=== PATIENT | female | born 1980 | race Caucasian/White ===

== ENCOUNTER → 2020-11-19 10:41 | Outpatient (BNVA) | payer MEDICAID, SELFPAY | PROVIDERS: Visit Provider Counselor Professional | DX: F41.1 Generalized anxiety disorder (principal) | CPT/HCPCS: 90834 ==

== ENCOUNTER → 2020-11-21 13:36 | Outpatient (BNVA) | payer MEDICAID, SELFPAY | PROVIDERS: Visit Provider Psychiatry & Neurology Psychiatry | DX: F02.81 Dementia in other diseases classified elsewhere, unspecified severity, with behavioral disturbance (principal); F41.1 Generalized anxiety disorder; F33.2 Major depressive disorder, recurrent severe without psychotic features | CPT/HCPCS: 99204 ==

== ENCOUNTER → 2020-12-24 10:58 | Outpatient (BNVA) | payer MEDICAID, SELFPAY | PROVIDERS: Visit Provider Counselor Professional | DX: F41.1 Generalized anxiety disorder (principal) | CPT/HCPCS: 90834 ==

== ENCOUNTER → 2021-01-03 13:14 | Outpatient (BNVA) | payer MEDICAID, SELFPAY | PROVIDERS: Visit Provider Psychiatry & Neurology Psychiatry | DX: F33.2 Major depressive disorder, recurrent severe without psychotic features (principal); F41.1 Generalized anxiety disorder; F02.81 Dementia in other diseases classified elsewhere, unspecified severity, with behavioral disturbance | CPT/HCPCS: 99214 ==

== ENCOUNTER 2021-09-28 14:16 | Inpatient (IN) | payer MEDICAID, SELFPAY ==
[2021-04-30 09:06] VITALS: BP 124/88; BMI 21.2
[2021-09-28 14:20] VITALS: BP 136/90; PULSE 86; RESP 18; TEMP 36.6; O2SAT 93; BMI 22.2
--- NOTE | 2021-09-28 14:44 | ED_ITS ---
HPI - General Adult General: Chief complaint: Psychiatric Symptoms Stated complaint: Suicidal Ideations Time Seen by Provider: 09/28/21 14:24 History of Present Illness: HPI: [40]yo patient w/ hx of schizoaffective disorder presenting after attempting suicide and hearing voices. Patient tells me that she is feeling depressed and her medicine is not working. Patient stopped taking her medicine 1 week ago. Patient tells me that 4 days ago, she was on a 26 floor balcony attempting to jump off the building. ported the patient was also hearing voices and has significant paranoia that her family is in danger. On arrival, the patient is AAOx3 and cooperative with my evalu ation. No focal complaints of chest pain, shortness of breath, palpitations, N/V, focal GI/ complaints. Onset: acute Duration: ongoing Location: home Severity: severe Associated symptoms: Deny chest pain, dyspnea, nausea, rash, palpitations or vomiting Review of Systems Const: Denies: fever(s) or chills Eyes: Denies: change in vision ENMT: Denies: mouth pain Card: Denies: chest pain or palpitations Resp: Denies: dyspnea or non-productive cough GI: Denies: abdominal pain, nausea, vomiting or diarrhea : Denies: dysuria Musc: Denies: extremity pain Skin/Breast: Denies: rash or new lesions Neuro: Denies: weakness in extremities Psych: Reports: depression, paranoia and auditory hallucinations Tay/Lymph: Denies: easy bruising PFSH ED PFSH: Medical History (Updated 09/28/21 @ 14:46 by Lesly Umaña MD) Schizoaffective disorder Family History (Updated 12/27/20 @ 09:44 by Myesha Bautista RN) Other Cancer Hypertension Social History (Updated 12/27/20 @ 11:25 by Myesha Bautista RN) Smoking and tobacco status: current some day smoker cigarettes Years cigarettes smoked: 27 [ Other cigarette details: 3-4 cigarettes a day] Second hand smoke exposure: Yes Alcohol intake: never Adopted: No Caregiver/support person: No Lives independently: No Household members: children Housing: Manufactured/Mobile home Marital status: Marital status details: 3-4 years ago Number of children: 3 Number of grandchildren: 0 Highest education level completed: Some College, No Degree service: No Current occupational status: unemployed Current occupational exposures/hazards: No Pets and animals: Yes (3 dogs) Pets & animals: dog(s) and farm animals Farm Animals: cattle Pets & animal details: to be butchered History of recent travel: Yes ([place]) Details: for a wedding Out of state: Yes Leisure activites: music and other Leisure activities details: likes to write Sexually active: No Current gender identity: Female Laura/Jehovah'S Witness: None Special laura needs: No Agree to transfusion: Yes Financial difficulty paying for basics: Not Very Hard Female Reproductive History: Date of last menstrual period: 12/22/20 Para: 3 Spontaneous abortions: No Physical Exam Const: COMMON NORMALS: alert HENMT: COMMON NORMALS: atraumatic HEAD & SCALP: atraumatic MOUTH: moist mucous membranes not abnormal Eye: COMMON NORMALS: EOMs intact bilaterally and conjunctivae normal CONJUNCTIVA: Yes conjunctivae normal Neck/C-Spine: COMMON NORMALS: full ROM and supple Resp: COMMON NORMALS: normal respiratory effort and clear to auscultation bilaterally AUSCULTATION: clear to auscultation bilaterally Cardio: COMMON NORMALS: regular rate RATE: regular rate GI: COMMON NORMALS: Soft to palpation and non-tender PALPATION: Yes Soft to palpation Extremity: COMMON NORMALS: full ROM Neuro: SENSORIUM/ORIENTATION: Yes alert MOTOR EXAM: No Abnormal motor strength present and Other motor observations present (no focal motor deficits) Psych: SPEECH: Yes Pressured speech present MOOD & AFFECT: Yes euthymic mood Course Vital Signs: Vital signs: Vital Signs Temperature 97.9 F 09/28/21 14:20 Pulse Rate 86 09/28/21 14:20 Respiratory Rate 18 09/28/21 14:20 Blood Pressure 136/90 09/28/21 14:20 Pulse Oximetry 93 09/28/21 14:20 MDM - General Adult Medical Decision Making [40]yo patient w/ hx of schizoaffective disorder presenting for SI and auditory hallucination. Clinically the patient displays no overt toxidrome; they are well appearing, with low suspicion for toxic ingestion given history and exam. Symptoms unlikely 2/2 anemia, hypothyroidism, infection, or ICH. Workup: CBC, CMP, Lipase, salicylate/tylenol, UDS, TSH/free T4, bHCG Lab findings: wnl, +amphetamine in the urine [3:45pm] On reassessment, labs and workup wnl. Patient is hemodynamically stable with no acute medical complaints. Case discussed with psychiatric provider Dr. Anglin at [facility] psych inpatient with recommendation for admission Disposition: Psych Lab Data : 09/28/21 15:09/28/21: Laboratory Results WBC 5.9 10^3/uL (4.0-10.0) 09/28/21: RBC 4.41 10^6/uL (4.1-5.3) 09/28/21 15: Hgb 12.8 g/dL (11.5-15.3) 09/28/21: Hct 41.4 % (37.0-47.0) 09/28/21: MCV 93.9 fl (81-99) 09/28/21: MCH 29.0 pg (28.0-34.0) 09/28/21: MCHC 30.9 g/dL (30.0-36.0) 09/28/21: RDW 12.2 % (12.1-15.1) 09/28/21: Plt Count 217 10^3/cmm (130-400) 09/28/21: MPV 10.2 fL (7.4-10.4) 09/28/21: Neut % (Auto) 58.9 % 09/28/21: Lymph % (Auto) 30.9 % 09/28/21: Nance % (Auto) 7.1 % 09/28/21: Eos % (Auto) 2.2 % 09/28/21: Baso % (Auto) 0.7 % 09/28/21: Neut # (Auto) 3.50 10^3/uL (1.8-7.7) 09/28/21: Lymph # (Auto) 1.8 10^3/uL (0.8-4.8) 09/28/21: Nance # (Auto) 0.4 10^3/uL (0.2-0.9) 09/28/21: Eos # (Auto) 0.1 10^3/uL (0.0-0.8) 02/26/22 15:28 Baso # (Auto) 0.0 10^3/uL (0.0-0.1) 09/28/21 15:28 Nucleated RBC % (auto) 0 % 09/28/21 15:28 Nucleated RBCs # 0.0 /100WBC 09/28/21 15:28 Urine Color Yellow (Yellow) 09/28/21 15:30 Urine Appearance Clear (CLEAR) 09/28/21 15:30 Urine pH 5 (5-7) 09/28/21 15:30 Ur Specific [place] 1.020 (1.005-1.030) 09/28/21 15:30 Urine Protein Neg (Negative) 09/28/21 15:30 Urine Glucose (UA) Norm (Normal) 09/28/21 15:30 Urine Ketones 1+ (Negative) H 09/28/21 15:30 Urine Blood Neg (Negative) 09/28/21 15:30 Urine Nitrate Negative (Negative) 09/28/21 15:30 Urine Bilirubin Neg (Negative) 09/28/21 15:30 Urine Urobilinogen Norm mg/dL (Negative) 09/28/21 15:30 Ur Leukocyte Esterase Trace (Negative) H 09/28/21 15:30 Urine RBC None /hpf (0-2) 09/28/21 15:30 Urine WBC 10-15 /hpf (0-5) H 09/28/21 15:30 Ur Squamous Epith Cells 5-10 /hpf (0-5) H 09/28/21 15:30 Amorphous Sediment Not Reportable 09/28/21 15:30 Urine Bacteria Trace /hpf (NONE) 09/28/21 15:30 Urine Mucus 2+ /hpf 09/28/21 15:30 Urine Opiates Screen Negative ng/mL (Negative) 09/28/21 15:30 Ur Barbiturates Screen Negative ng/mL (Negative) 09/28/21 15:30 Ur Phencyclidine Scrn Negative ng/mL (Negative) 09/28/21 15:30 Ur Amphetamines Screen Positive ng/mL (Negative) H 09/28/21 15:30 U Benzodiazepines Scrn Negative ng/mL (Negative) 09/28/21 15:30 Urine Cocaine Screen Negative ng/mL (Negative) 09/28/21 15:30 U Marijuana (THC) Screen Negative ng/mL (Negative) 09/28/21 15:30 Discharge Plan Discharge Patient Disposition: Admitted As Inpatient Clinical Impression: Psychosis, Depression Condition: Stable Coding Level of Care Code ED Industrial Boilermaker for Jeannieg Fwd Exam Comprehensive
[2021-09-28 15:34] LABS: Basophils % 0.7 %; Eosinophils # 0.1 10^3/uL (0.0-0.8); Eosinophils % 2.2 %; Hematocrit 41.4 % (37.0-47.0); Hemoglobin 12.8 g/dL (11.5-15.3); Lymphocytes # 1.8 10^3/uL (0.8-4.8); Lymphocytes % 30.9 %; Mean Corpuscular HGB Conc 30.9 g/dL (30.0-36.0); Mean Corpuscular Volume 93.9 fl (81-99); Mean Platelet Volume 10.2 fL (7.4-10.4); Monocytes # 0.4 10^3/uL (0.2-0.9); Monocytes % 7.1 %; Neutrophils % 58.9 %; Nucleated Red Blood Cells % 0 %; Platelet Count 217 10^3/cmm (130-400); Red Blood Count 4.41 10^6/uL (4.1-5.3); Red Cell Distribution Width 12.2 % (12.1-15.1); White Blood Count 5.9 10^3/uL (4.0-10.0)
[2021-09-28 15:46] LABS: Add Urine Culture? No; Add Urine Microscopic? YES; Bacteria Urine TRACE /hpf; Bilirubin Urine Neg (Negative); Blood Urine Neg (Negative); Glucose Urine UA Norm (Normal); Ketones Urine 1+ (Negative); Leukocyte Esterase Urine Trace (Negative); Mucus Urine 2+ /hpf; Nitrate Urine Negative (Negative); Protein Urine Neg (Negative); Urine Appearance Clear (CLEAR); Urine Color Yellow (Yellow); Urobilinogen Urine Norm (Negative); pH Urine 5 (5-7)
[2021-09-28 15:49] LABS: Amphetamines Screen Urine Positive (Negative); Barbiturates Screen Urine Negative (Negative); Benzodiazepines Screen Urine Negative (Negative); Cocaine Screen Urine Negative (Negative); Opiate Screen Urine Negative (Negative); PCP Screen Urine Negative (Negative); THC Screen Urine Negative (Negative)
[2021-09-28 16:06] LABS: Acetaminophen 7.6 ug/mL (10-30); Alanine Aminotransferase 17 U/L (0-33); Albumin Level 4.4 g/dL (3.5-5.2); Alkaline Phosphatase 86 IU/L (35-105); Aspartate Amino Transferase 13 U/L (0-32); Blood Urea Nitrogen 21 mg/dL (6-20); Calcium 9.3 mg/dL (8.5-10.5); Carbon Dioxide 19 mmol/L (22-29); Chloride 108 mmol/L (98-107); Free T4 Free Thyroxine 1.17 ng/dL (0.82-1.77); Globulin 2.4 g/dL (1.3-4.6); Glomerular Filtration Rate 110.7 mL/min (90-130); Glucose 86 mg/dL (65-115); Lipase 23 U/L (13-60); Osmolality Calculated 292 mOsm/kg (285-295); Salicylate 4.6 mg/dL (3-10); Sodium 140 mmol/L (136-145); Thyroid Stimulating Hormone 0.95 uIU/mL (0.27-4.20); Total Bilirubin 0.2 mg/dL (0.15-1.2); Total Protein 6.8 g/dL (6.6-8.7)
--- NOTE | 2021-09-28 16:33 | PC.NURSE ---
REPORT TO CARLOS ALBERTO DISLA ON NPU
[2021-09-28 17:22] VITALS: BP 138/78; PULSE 89; RESP 17; TEMP 36.7; O2SAT 98
[2021-09-28 22:00] VITALS: BP 120/83; PULSE 98; RESP 18; TEMP 36.9; O2SAT 99
[2021-09-29 06:00] VITALS: BP 125/84; PULSE 90; RESP 16; TEMP 37.3; O2SAT 99
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
[2021-09-29] MEDS: labetalol 200 mg Tablet 100 MG PO ×2 (09:04→17:58)
[2021-09-29] MEDS: hyDRALAzine 25 mg Tablet 50 MG PO ×3 (09:04→20:06)
--- NOTE | 2021-09-29 09:18 | PC.NURSE ---
Am assessment Patient is resting in bed with am assessment. She awakens easily to verbal stimuli. She is alert and oriented in all aspects. She denies SI, HI or hallucinations. Affect is anxious and bland. She denies pain. Hr regular in rhythm. PPP x 2, no edema noted. Lungs clear with breathing even and non labored. Bowel sounds active in all quads. She denies pain with urination. Skin is warm and dry, no skin tears, rashes or bruises noted.
[2021-09-29 14:00] VITALS: BP 117/82; PULSE 95; RESP 18; TEMP 36.6; O2SAT 99
[2021-09-29] MEDS: hyDROXYzine 25 mg Capsule 50 MG PO (14:09)
--- NOTE | 2021-09-29 14:10 | PC.NURSE ---
Addendum entered by Brianna Larios RN 09/29/21 14:50: Patient resting comfortably at this time. Vistaril effective. Original Note: Prn note Patient c/o feeling of pressure in chest, she states she feels very anxious. She was given Vistaril for anxiety.
[2021-09-29 20:11] VITALS: BP 116/77; PULSE 93; RESP 15; TEMP 36.9; O2SAT 98
[2021-09-29] MEDS: trazodone 50 mg Tablet PO (21:29)
[2021-09-30 05:35] VITALS: BP 116/77; PULSE 93; RESP 15; TEMP 36.9; O2SAT 98
[2021-09-30 05:50] VITALS: BP 113/78; PULSE 96; RESP 20; TEMP 37; O2SAT 97
[2021-09-30] MEDS: labetalol 200 mg Tablet 100 MG PO ×2 (08:44→17:48)
[2021-09-30] MEDS: hyDRALAzine 25 mg Tablet 50 MG PO ×3 (08:44→20:01)
[2021-09-30] MEDS: hyDROXYzine 25 mg Capsule 50 MG PO (10:31)
--- NOTE | 2021-09-30 10:43 | PC.NURSE ---
Addendum entered by Ronnie Edwards RN 09/30/21 11:28: PT STATES MED HAS HELPED HER ANXIETY, WILL CONTINUE TO MONITOR. Original Note: PRN MED PT GIVEN 50MG VISTARIL FOR STATED ANXIETY, WILL CONTINUE TO MONITOR.
[2021-09-30 13:53] VITALS: BP 112/75; PULSE 93; RESP 18; TEMP 36.5; O2SAT 99
--- NOTE | 2021-09-30 18:48 | W.PM.NPUPNS ---
Subjective NPU Subjective: Interval history: Patient presents today reporting that she is feeling maybe a little bit better. She still reported confusion and memory disturbance. 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 She reports that her came yesterday and that he is supportive but fairly frustrated with her about the choices she has been making. She reports an openness to sober living treatment and she is working with the social work team to establish where that can occur. Mental Status Exam MSE Comments: This is a slender white female, with hospital scrubs on, with adequate grooming and eye contact. No abnormal movements, except for mild psychomotor retardation. Cooperative with exam in mild distress. Speech was decreased rate and volume. Mood described as confused; affect congruent. Thought process, mostly organized. Thought content: patient denied any suicidal or homicidal ideation; there were no delusions noted, but she did report paranoia; and she reported some confusion about whether or not she was seeing or hearing things that she never was able to resolve. Attention and concentration were mostly intact, and memory was somewhat reliable but completely unreliable and other situations, but none were formally tested. She is alert and oriented times three. Insight and judgment are impaired. Impulse control is impaired. 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 1. We will review, through records and family, to get some history of medication to allow us to make an intelligent recommendation. 2. Encourage individual, group, and milieu therapy. 3. Continue q-15 minute checks for safety. 4. Recommend sober living treatment at the highest level of care to which the patient is willing to commit. 5. Her methamphetamine use likely impacting her memory significantly. Involuntary Hold Information 96 Hour Hold: 96 Hour Involuntary Admission: No Attestations NPU Medical Necessity Statement*: Inpatient hospitalization is medically necessary and the clinically appropriate intervention, at this time. We will monitor medications and make changes as indicated. Likely length of stay is 3-5 days. 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
[2021-09-30] MEDS: trazodone 50 mg Tablet PO (20:02)
[2021-09-30 20:04] VITALS: BP 108/69; PULSE 93; RESP 16; TEMP 36.4; O2SAT 98
[2021-09-30] MEDS: acetaminophen 325 mg Tablet 650 MG PO (21:20)
[2021-10-01 06:00] VITALS: BP 97/57; PULSE 95; RESP 16; TEMP 36.7; O2SAT 97
[2021-10-01] MEDS: labetalol 200 mg Tablet 100 MG PO ×2 (08:02→18:30)
[2021-10-01] MEDS: hyDRALAzine 25 mg Tablet 50 MG PO ×3 (08:03→20:00)
[2021-10-01] MEDS: hyDROXYzine 25 mg Capsule 50 MG PO (12:11)
[2021-10-01 14:00] VITALS: BP 97/57; PULSE 95; RESP 16; TEMP 36.7; O2SAT 97
[2021-10-01] MEDS: OLANZapine 5 mg ODT PO (17:16)
--- NOTE | 2021-10-01 18:34 | P.NPUPN_ITS ---
Subjective NPU Subjective: Interval history: Patient presents today really struggling with her circumstance. She vacillated between crying about wanting go home and being confused about what to do. She also at one point expressed that she just wanted to because that would be easier/simpler. A fairly lengthy discussion about her need for intensive sober living treatment if she is going to have a chance to be her addiction. She will be ambivalent about medications and we continue to discuss the possibility that the medication could help clear her confusion. Medications: Medication Review Details: This is a slender white female, with hospital scrubs on, with adequate grooming and eye contact. No abnormal movements, except for mild psychomotor retardation. Cooperative with exam in moderate distress. Speech was decreased rate and volume. Mood described as upset; affect tearful. Thought process, mostly o rganized. Thought content: patient denied any suicidal or homicidal ideation; there were no delusions noted, but she did report paranoia; and she reported some confusion about whether or not she was seeing or hearing things that she never was able to resolve. Attention and concentration were mostly intact, and memory was somewhat reliable but completely unreliable and other situations, but none were formally tested. She is alert and oriented times three. Insight and judgment are impaired. Impulse control is impaired. 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 1. We will continue to offer medication/antipsychotic. 2. Encourage individual, group, and milieu therapy. 3. Continue q-15 minute checks for safety. 4. Recommend sober living treatment at the highest level of care to which the patient is willing to commit. 5. Her methamphetamine use likely impacting her memory significantly. Involuntary Hold Information 96 Hour Hold: 96 Hour Involuntary Admission: No Attestations NPU Medical Necessity Statement*: Inpatient hospitalization is medically necessary and the clinically appropriate intervention, at this time. We will monitor medications and make changes as indicated. Likely length of stay is 2-4 days. 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
[2021-10-01] MEDS: acetaminophen 325 mg Tablet 650 MG PO (18:47)
[2021-10-01] MEDS: trazodone 50 mg Tablet PO (21:04)
[2021-10-01 21:08] VITALS: BP 152/82; PULSE 98; RESP 20; TEMP 36.8; O2SAT 97
[2021-10-02 06:00] VITALS: BP 150/98; PULSE 82; RESP 18; TEMP 36.8; O2SAT 96
[2021-10-02] MEDS: hyDRALAzine 25 mg Tablet 50 MG PO ×3 (08:32→20:04)
[2021-10-02] MEDS: labetalol 200 mg Tablet 100 MG PO ×2 (08:33→19:50)
[2021-10-02] MEDS: acetaminophen 325 mg Tablet 650 MG PO ×2 (08:33→16:43)
--- NOTE | 2021-10-02 08:38 | PC.NURSE ---
Patient with c/o lower abdominal period cramps rated 8. Given Tylenoil 650 mg po for this.
[2021-10-02 14:00] VITALS: BP 142/81; PULSE 88; RESP 17; TEMP 36.7; O2SAT 97
--- NOTE | 2021-10-02 19:01 | P.NPUPN_ITS ---
Subjective NPU Subjective: Interval history: Patient presents today having spoke with her as had this director underwriter sales. We had a conversation where everyone safe possibly Jennifer understood the critical need for her to have intense inpatient services though she did seem to appreciated a little more than yesterday. We agreed that we would work with the treatment team tomorrow and her 's been the same time also looking into some possibilities and that barring any problems we would discharge tomorrow with a plan for him to get the best program that all of us could determine and he would work to keep her in a safe sober environment until he get her to that program. Mental Status Exam MSE Comments: This is a slender white female, with hospital scrubs on, with adequate grooming and eye contact. No abnormal movements, except for mild psychomotor retardation. Cooperative with exam in mild distress. Speech was decreased rate and volume. Mood described as sad; affect congruent. Thought pr ocess, mostly organized. Thought content: patient denied any suicidal or homicidal ideation; there were no delusions noted, but she did report paranoia; and she reported some confusion about whether or not she was seeing or hearing things that she never was able to resolve. Attention and concentration were mostly intact, and memory was somewhat reliable but completely unreliable and other situations, but none were formally tested. She is alert and oriented times three. Insight and judgment are limited. Impulse control is impaired. 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 1. We will continue to offer medication/antipsychotic. 2. Encourage individual, group, and milieu therapy. 3. Continue q-15 minute checks for safety. 4. Recommend sober living treatment at the highest level of care to which the p portia is willing to commit. 5. Her methamphetamine use likely impacting her memory significantly. Involuntary Hold Information 96 Hour Hold: 96 Hour Involuntary Admission: No Attestations NPU Medical Necessity Statement*: Inpatient hospitalization is medically necessary and the clinically appropriate intervention, at this time. We will monitor medications and make changes as indicated. Likely length of stay is 1-3 days. Coding Level of Care Code Acute Structural Test Engineer for Munir Barksdale Diagnoses Methamphetamine use disorder, severe, dependence F15.20 Psychosis F29 Major depressive disorder, recurrent severe without psychotic features F33.2 Generalized anxiety disorder F41.1 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
[2021-10-02] MEDS: trazodone 50 mg Tablet PO (20:05)
[2021-10-02] MEDS: hyDROXYzine 25 mg Capsule 50 MG PO (20:05)
--- NOTE | 2021-10-02 21:49 | PC.NURSE ---
Patient requested medication to help her sleep. Trazadone was given.
[2021-10-02 22:00] VITALS: BP 107/74; PULSE 97; RESP 16; TEMP 36.7; O2SAT 98
[2021-10-03 06:00] VITALS: BP 122/85; PULSE 102; RESP 20; TEMP 36.9; O2SAT 95
[2021-10-03] MEDS: acetaminophen 325 mg Tablet 650 MG PO ×2 (06:01→15:06)
[2021-10-03] MEDS: hyDRALAzine 25 mg Tablet 50 MG PO ×2 (08:50→15:07)
[2021-10-03] MEDS: labetalol 200 mg Tablet 100 MG PO (08:50)
[2021-10-03] MEDS: hyDROXYzine 25 mg Capsule 50 MG PO (12:52)
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
[2021-10-03 14:00] VITALS: BP 106/76; PULSE 86; RESP 17; TEMP 36.6; O2SAT 99
[2021-10-03 15:17] VITALS: BP 106/76; PULSE 86; RESP 17; TEMP 36.6; O2SAT 99
== END 2021-10-03 15:52 | disposition home or self-care (01) | DRG 885 ==
LOC: ER 14:59 → NP 16:14
PROVIDERS: Admitting Provider Psychiatry & Neurology Psychiatry; Emergency Provider Emergency Medicine; Visit Provider Psychiatry & Neurology Psychiatry
DX: F25.1 Schizoaffective disorder, depressive type (principal); R45.851 Suicidal ideations; F15.20 Other stimulant dependence, uncomplicated; Z91.14 Patient's other noncompliance with medication regimen; F17.290 Nicotine dependence, other tobacco product, uncomplicated; F41.1 Generalized anxiety disorder
CPT/HCPCS: 36415; 80053; 80306; 80307; 81001; 83690; 84439; 84443; 85025; 97150; 97165; 99285